=== PATIENT | female | born 1960 | race Caucasian/White ===

== ENCOUNTER 2020-12-16 13:51 | Inpatient (IN) | payer MEDICARE, SELFPAY ==
[2020-12-16 13:57] VITALS: BP 147/105; PULSE 112; RESP 20; O2SAT 93; BMI 23.5
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
[2020-12-16 14:09] VITALS: BP 147/105; PULSE 112; RESP 20; TEMP 36.7; O2SAT 93
--- NOTE | 2020-12-16 14:21 | CTR_ITS ---
PROCEDURE INFORMATION: Exam: CT Head Without Contrast Exam date and time: 12/16/2020 2:21 PM Age: 60 years old Clinical indication: Altered mental status/memory loss; Additional info: AMS TECHNIQUE: Imaging protocol: Computed tomography of the head without contrast. Total images: 201 Radiation optimization: All CT scans at this facility use at least one of these dose optimization techniques: automated exposure control; mA and/or kV adjustment per patient size (includes targeted exams where dose is matched to clinical indication); or iterative reconstruction. COMPARISON: No relevant prior studies available. RADIATION DOSE METRICS: Total DLP (mGy-cm): 1413.8 FINDINGS: Brain: No evidence of active or acute intracranial pathologic process, hemorrhage, or trauma. No visible evidence of diffuse cerebral edema or generalized demyelination. No mass effect. No midline shift. No hyperdense MCA or insular ribbon sign. Cerebral ventricles: No ventriculomegaly. Paranasal sinuses: Within the field of view chronic ethmoid and maxillary sinusitis. Mastoid air cells: Visualized mastoid air cells are well aerated. Bones/joints: Unremarkable. No acute fracture. Soft tissues: Unremarkable. CT/CT head wo con* [id number] IMPRESSION: 1. No evidence of active or acute intracranial pathologic process, hemorrhage, or trauma. 2. Within the field of view chronic ethmoid and maxillary sinusitis. Radiation Dose CTDIVOL = (mGy): DLP = 1413.8 (mGy-cm)
--- NOTE | 2020-12-16 14:22 | ECG_ITS ---
[facility] Test Date: 2020-12-16 Pat Name: Zhane Salguero Department: Room: Gender: Female Compliance Nurse: : 1960 Requested By: Mina Causey Order Number: [id number] Burger MD: Rocael Hall M.D. Measurements Intervals Reading Rate: 67 P: 52 MI: 158 QRS: 28 QRSD: 83 T: 34 QT: 382 QTc: 406 Interpretive Statements SINUS RHYTHM No previous ECG available for comparison Electronically Signed On 12-16-2020 21:05:03 CDT by Rocael Hall M.D. [id number]
[2020-12-16] MEDS: haloperidol inj 5 mg/mL INJ 1 mL 2 MG IM (15:32)
[2020-12-16] MEDS: LORazepam 2 mg/mL INJ 1 mL 1 MG IM (15:33)
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
[2020-12-16 17:06] LABS: Basophils % 0.3 %; Hematocrit 33.5 % (37.0-47.0); Hemoglobin 11.1 g/dL (11.5-15.3); Lymphocytes # 0.3 10^3/uL (0.8-4.8); Mean Corpuscular HGB Conc 33.1 g/dL (30.0-36.0); Mean Corpuscular Hemoglobin 29.4 pg (28.0-34.0); Mean Corpuscular Volume 88.9 fl (81-99); Mean Platelet Volume 9.7 fL (7.4-10.4); Monocytes # 0.3 10^3/uL (0.2-0.9); Monocytes % 2.8 %; Neutrophils # 10.47 10^3/uL (1.8-7.7); Neutrophils % 91.4 %; Nucleated Red Blood Cells % 0 %; Platelet Count 254 10^3/cmm (130-400); Red Blood Count 3.77 10^6/uL (4.1-5.3); Red Cell Distribution Width 15.7 % (12.1-15.1); White Blood Count 11.5 10^3/uL (4.0-10.0)
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
--- NOTE | 2020-12-16 17:23 | PC.NURSE ---
pt to CT by stretcher with tech
[2020-12-16 17:24] LABS: Troponin(5th) Baseline 14 ng/L (0-10)
[2020-12-16 17:25] LABS: Alanine Aminotransferase 26 U/L (0-33); Albumin Level 3.1 g/dL (3.5-5.2); Alkaline Phosphatase 85 IU/L (35-105); Aspartate Amino Transferase 19 U/L (0-32); Blood Urea Nitrogen 32 mg/dL (8-23); Calcium 9.3 mg/dL (8.5-10.5); Carbon Dioxide 25 mmol/L (22-29); Chloride 94 mmol/L (98-107); Globulin 3.2 g/dL (1.3-4.6); Glomerular Filtration Rate 63.7 mL/min (90-130); Glucose 195 mg/dL (65-115); Osmolality Calculated 286 mOsm/kg (285-295); Sodium 132 mmol/L (136-145); Total Bilirubin 0.4 mg/dL (0.15-1.2); Total Protein 6.3 g/dL (6.6-8.7)
[2020-12-16 17:26] LABS: Acetaminophen < 5.0 ug/mL (10-30); Alcohol Level < 10 mg/dL (0-10); Salicylate < 0.3 mg/dL (3-10)
[2020-12-16 17:57] LABS: Urine Color Amber (Yellow)
[2020-12-16 17:58] LABS: Add Urine Microscopic? YES; Amphetamines Screen Urine Negative (Negative); Barbiturates Screen Urine Negative (Negative); Benzodiazepines Screen Urine Negative (Negative); Bilirubin Urine 1+ (Negative); Blood Urine 2+ (Negative); Cocaine Screen Urine Negative (Negative); Glucose Urine UA Norm (Normal); Ketones Urine 1+ (Negative); Leukocyte Esterase Urine 2+ (Negative); Nitrate Urine Negative (Negative); Opiate Screen Urine Negative (Negative); PCP Screen Urine Negative (Negative); Protein Urine Trace (Negative); RBC Urine 0-4 /hpf (0-2); THC Screen Urine Positive (Negative); Urine Appearance Hazy (CLEAR); Urobilinogen Urine 1 mg/dL (Negative); pH Urine 5 (5-7)
[2020-12-16 17:59] LABS: Add Urine Culture? Yes; Bacteria Urine 3+ /hpf; Hyaline Casts Urine 0-4 /lpf; Mucus Urine 2+ /hpf; Transitional Epi Cells Urine 0-4 /hpf
[2020-12-16 19:33] LABS: SARS Covid-2 Antigen Negative (Negative)
[2020-12-16 19:40] LABS: Troponin 5 2HR 11.17 ng/L (0-10)
[2020-12-16 19:42] LABS: Troponin 5 2HR Delta -2.83 ABS# (0-10)
[2020-12-16 20:36] LABS: Procalcitonin 0.23 ng/mL (0-0.5)
--- NOTE | 2020-12-16 21:11 | PC.NURSE ---
Patient refused Medication Patient refused medication order of cephALEXin 500mg. Patient stated that she is allergic to all antibiotics .
[2020-12-16 22:50] VITALS: BP 158/87; PULSE 96; RESP 19; TEMP 37.2; O2SAT 87; BMI 27.6
[2020-12-16 23:31] VITALS: BP 158/87; PULSE 96; RESP 19; TEMP 37.2; O2SAT 87
[2020-12-17 06:00] VITALS: BP 124/80; PULSE 87; RESP 22; TEMP 36.5; O2SAT 90
[2020-12-17] MEDS: guaiFENesin 600 mg Tablet 1200 MG PO (08:56)
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
[2020-12-17 14:00] VITALS: BP 142/84; PULSE 100; RESP 17; TEMP 36.9; O2SAT 95
--- NOTE | 2020-12-17 16:12 | PC.NURSE ---
patient behavior patient sad and tearful in room. she states she has a new plan... she plans to lay under the air conditioner with no blankets until she catches pneumonia and dies. patient states that on one in her family wants her. after a few minutes reports that she thinks she just needs a good cry and will be ok. will continue to monitor.
[2020-12-17 21:07] VITALS: BP 127/80; PULSE 67; RESP 15; TEMP 37.1; O2SAT 89
[2020-12-17] MEDS: ropinirole 1 mg Tablet 0.5 MG PO (22:51)
[2020-12-17] MEDS: cephALEXin 500 mg Capsule PO (22:51)
[2020-12-17] MEDS: trazodone 150 mg Tablet 300 MG PO (22:51)
[2020-12-18 06:00] VITALS: BP 122/78; PULSE 105; RESP 15; TEMP 37.1; O2SAT 94
[2020-12-18] MEDS: cephALEXin 500 mg Capsule PO ×3 (06:51→13:36)
[2020-12-18] MEDS: guaiFENesin 600 mg Tablet 1200 MG PO (08:22)
[2020-12-18] MEDS: predniSONE 10 mg Tablet PO (08:22)
[2020-12-18] MEDS: nicotine 21 mg Patch 1 PATCH TRANSDERMA (09:44)
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
[2020-12-18 14:00] VITALS: BP 128/71; PULSE 120; RESP 20; TEMP 36.2; O2SAT 95
--- NOTE | 2020-12-18 17:38 | PC.NURSE ---
REFUSED SCHEDULED ABILIFY, PT CAME TO DESK SAYING SHE WASN'T TAKING ANY MEDICATIONS WHILE SHE IS STILL HERE NOT EVEN ANY PAIN PILLS STATED SHE WAS GOING TO LIKE [facility] DID IN [address] KERNS NOTIFIED OF MED REFUSAL, NO NEW ORDERS
[2020-12-18 21:23] VITALS: BP 150/98; PULSE 113; RESP 16; TEMP 37.1; O2SAT 95
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
[2020-12-19 06:00] VITALS: RESP 18
--- NOTE | 2020-12-19 06:36 | PC.NURSE ---
clients respirations were observed/will obtain vitals at better time/per client
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
--- NOTE | 2020-12-19 08:31 | PC.NURSE ---
refused scheduled Lance, Sherrell, Mucinex this morning
--- NOTE | 2020-12-19 09:08 | PC.OT ---
OT NPU EVALUATION ATTEMPTED; PATIENT STATES, NO NOT RIGHT NOW, MAYBE AFTER I YOU CAN GET THE INFO. THEY ARE GOING TO LET ME HERE EVALUATION WILL BE ATTEMPTED AGAIN AT A LATER TIME.
[2020-12-19 14:00] VITALS: RESP 16
--- NOTE | 2020-12-19 14:52 | PC.NURSE ---
refused scheduled Keflex
--- NOTE | 2020-12-19 15:05 | PC.RESP ---
sent pulmonary rehab information
--- NOTE | 2020-12-19 15:26 | PC.NURSE ---
REFUSED VITALS, WILL CONTINUE TO MONITOR.
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
[2020-12-19] MEDS: ropinirole 1 mg Tablet 0.5 MG PO (20:46)
[2020-12-19] MEDS: trazodone 150 mg Tablet 300 MG PO (20:47)
[2020-12-19] MEDS: guaiFENesin 600 mg Tablet 1200 MG PO (20:47)
[2020-12-19] MEDS: cephALEXin 500 mg Capsule PO (20:47)
[2020-12-19] MEDS: tizanidine 4 mg Tablet 8 MG PO (20:53)
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
[2020-12-19 22:00] VITALS: RESP 18
--- NOTE | 2020-12-19 22:50 | PC.NURSE ---
pt refused vitals at this time/respirations were observed
--- NOTE | 2020-12-20 01:30 | PC.NURSE ---
Patient slid down from chair to bed very gracefully. She then called staff clamming she fell from chair. It was observed on camera that patient slid down to mat gently. RN assessed patents Tail bone area noting no redness or swelling, with slight tenderness upon palpation.
[2020-12-20] MEDS: LORazepam 2 mg/mL INJ 1 mL IM (02:14)
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
[2020-12-20 06:00] VITALS: PULSE 81; RESP 17; O2SAT 93
[2020-12-20] MEDS: ARIPiprazole 2 mg Tablet PO ×2 (08:40→17:59)
[2020-12-20] MEDS: guaiFENesin 600 mg Tablet 1200 MG PO ×2 (08:40→21:24)
--- NOTE | 2020-12-20 08:45 | PC.NURSE ---
refused scheduled Keflex
[2020-12-20 14:00] VITALS: RESP 18
--- NOTE | 2020-12-20 14:33 | PC.NURSE ---
REFUSED SCHEDULED KEFLEX
--- NOTE | 2020-12-20 17:28 | P.PN_ITS ---
Subjective NPU Subjective: Interval history: I discussed the patient's progress with the treatment team. They say that her , Ridge, is working to get guardianship. I met with the patient in the day area where she was eating dinner. She was picking little slices of care at out of her salad. She has apparently been eating some, despite her covenant with God yesterday that she would not eat until she left here. I spoke some with her about her childhood and family, which she describes as having been very poor. She says that her mood is depressed. She slept some last night. No nightmares. She does not spontaneously complain about any pain. She denies auditory and visual hallu cinations. She denies suicidal ideation. Since the patient was in a more congenial mood this afternoon, I discussed the Abilify again. She said she would be willing to take it, so the nurse brought it, and indeed she did take it. Mental Status Exam MSE Comments: I met with the patient in the day area. She was dressed in hospital scrubs, fairly neatly groomed, and appearing 20 years older than her s tated age. She was calmer today and willingly tells me about a few aspects of her childhood. Eye contact is poor. No psychomotor agitation or retardation. Speech is at a more regular rate and rhythm.. Alert, oriented to person, and situation. Attention and concentration were focused on her salad. Memory is what intact for the purposes of this interview. Mood is irritable but improving. Affect is irritable to pleasant. Thought process shows flight of ideas, but is more organized around delusional content today. Thought content: Denies auditory and visual hallucinations. She has a number of persecutory delusions. She has restorationism preoccupation. Denies current suicidal and homicidal ideation. Insight and judgment appear to be quite limited. Impulse control is limited as well. Vitals/I&O/Wt Last Vital Signs Temp 98.8 F 12/18/20 21:23 Pulse 81 12/20/20 06:00 Resp 17 12/20/20 22:00 BP 150/98 12/18/20 21:23 Pulse Ox 93 12/20/20 06:00 Data NPU : 12/16/20 17:00 12/16/20 17:00 A&P Assessment and plan (1) Acute psychosis: Status: Acute (2) COPD (chronic obstructive pulmonary disease) with emphysema: Status: Acute (3) Osteoporosis: Status: Acute (4) Mild cognitive impairment: Status: Acute (5) Chronic pain: Status: Acute (6) Pancreatic cyst: Status: Acute (7) CVID (common variable immunodeficiency): Status: Acute Additional A&P Information 1. Acute psychosis of unknown origin. Patient has had a medical work-up in the ED. Their note states: - Labs notable for minimal leukocytosis, normocytic anemia with unclear baseline. Metabolic panel without acute derangement to explain patient's symptoms. Urinalysis challenging to interpret in the context of squamous epithelial contamination, given level of agitation and history physical aggression towards staff we are unable to obtain repeat sampling. Given nitrate negative most likely not true infection however given mental status change will plan to discuss with admitting service - Imaging notable for no acute intracranial process to explain behavior change - Upon serial reexamination after treatment the patient was improved with medications - Based on patient history, evaluation, labs, and imaging as interpreted the most likely cause of the patient's condition is psychosis of unclear etiology 2. Consider steroid induced psychosis, since she was taking 60 mg of prednisone a day at some point and 10 mg twice daily at other points. It also may be due to marijuana use and an older person. She may be improved today, which lends credence to the steroid-induced psychosis hypothesis, since she is off of the steroids for a little bit now. 3. Start antipsychotic medication if the patient approves. She took Abilify 2 mg voluntarily this afternoon. 4. Continue every 15 minute checks for safety. 5. Encourage individual, group and milieu therapies. 6. Create a stable and safe discharge plan 7. We will need to request a 21-day hold since the patient's psychosis does not appear to be resolving without psychiatric medication, and she continues to refuse medication Involuntary Hold Information 96 Hour Hold: 96 Hour Involuntary Admission: No Attestations NPU Medical Necessity Statement*: Psychiatric hospitalization is medically necessary to continue assessment for cause of psychosis, prevent access to lethal means, to initiate medication, and to coordinate a safe discharge. Likely length of stay is 10-14 days. Coding Level of Care Code Acute Parliamentary Librarian for Silver Lynn Diagnoses Acute psychosis F23 COPD (chronic obstructive pulmonary disease) with emphysema J43.9 Osteoporosis M81.0 Mild cognitive impairment G31.84 Chronic pain G89.29 Pancreatic cyst K86.2 CVID (common variable immunodeficiency) D83.9
[2020-12-20] MEDS: haloperidol 5 mg Tablet PO (21:24)
[2020-12-20] MEDS: cephALEXin 500 mg Capsule PO (21:24)
[2020-12-20] MEDS: ropinirole 1 mg Tablet 0.5 MG PO (21:25)
[2020-12-20] MEDS: trazodone 150 mg Tablet 300 MG PO (21:27)
[2020-12-20 22:00] VITALS: RESP 17
--- NOTE | 2020-12-21 03:50 | PC.NURSE ---
Addendum entered by Mirella Law RN 12/21/20 03:58: RN emailed GERARD Little regarding daughters concern Original Note: Daughter/Guardianship Daughter, Mechelle Salguero, called this evening seeking information on taking guardianship of her mother. Her phone number is [phone] (night) and . Daughter is worried that this patient wanders off, reports recent Silver alert prior to admission. Pt reports, mother uses marijuana and has a card for this. Pt states her mother is on high dose of predisone 20mg po for hypergamaglobulin anemia and she is worried that her mother may suffer if she does not take her medications. Physician who prescribes meds is Dr. Gottlieb, pcp in [place], [place]. Pt also takes Tizanidine and Trazodone but daughter was unsure of dose. She said she would call in the morning with more information. Mechelle would like to know if the hospital could assist her in taking guardianship.
[2020-12-21 06:00] VITALS: BP 122/72; PULSE 121; RESP 15; TEMP 36.3; O2SAT 94
--- NOTE | 2020-12-21 07:00 | PC.NURSE ---
Patient came to nurses station stating she was having leg cramps. I offered her zanaflex and tylenol. She refused both.
--- NOTE | 2020-12-21 07:21 | PC.NURSE ---
pt stated it is her legal labor right to be given a ride to the courthouse at 1400 on 12/21/2020
[2020-12-21] MEDS: guaiFENesin 600 mg Tablet 1200 MG PO ×2 (08:52→22:29)
[2020-12-21] MEDS: ARIPiprazole 2 mg Tablet PO (08:52)
[2020-12-21] MEDS: cephALEXin 500 mg Capsule PO (08:52)
--- NOTE | 2020-12-21 11:56 | PC.NUTR ---
Nutrition assessment completed for LOS. Noted 8 meals of 0%. Questionable weights in EMR. Interviewed pt for meal preferences, but received questionable information. States she wants ice cream and sherbet but then stated she chokes on them. Unclear accuracy--may benefit from BOOTMAKER HAND evaluation. Attempted to clarify current weight with staff, but reported they are unsure which weight in EMR may be accurate. Staff recommended not to attempt to weigh pt at this time given her mental status. Will add whole milk and vanilla pudding per pt preference. See full RD assessment for further details.
--- NOTE | 2020-12-21 13:58 | PC.NURSE ---
PT OFF UNIT TO COURT.
[2020-12-21 14:00] VITALS: TEMP 36.7
--- NOTE | 2020-12-21 19:04 | P.PN_ITS ---
Subjective NPU Subjective: Interval history: I discussed the patient's progress with the treatment team. They say that her , Ridge, is working to get guardianship. I met with the patient on the bench by the nurses station. I explained how the 21-day hearing will go, and what I will say. She could understand that we may agree to disagree. The nutrition report says that she has not really been eating. She is actually living up to her covenant with God to not eat until she left here. She says that her mood is depressed. She slept okay last night. No nightmares. She does not spontaneously complain about any pain. She denies auditory and visual hallucinations. She denies suicidal ideation. I saw the patient after the hearing which ordered her to stay in the hospital up to an additional 21 days. She seemed okay with the outcome. Mental Status Exam MSE Comments: I met with the patient in the day area. She was dressed in hospital scrub bottoms and a flowered top, fairly neatly groomed, and appearing 20 years older than her stated age. Eye contact is poor. No psychomotor agitation or retardation. Speech is at a regular rate and rhythm. Alert, oriented to person, and situation. Attention and concentration were distractible. Memory is what intact for the purposes of this interview. Mood is irritable but improving. Affect is irritable to pleasant. Thought process shows flight of ideas, but is more organized around delusional content today. Thought content: Denies auditory and visual hallucinations. She has a number of persecutory delusions. She has islam preoccupation. Denies current suicidal and homicidal ideation. Insight and judgment appear to be quite limited. Impulse control is limited as well. Vitals/I&O/Wt Last Vital Signs Temp 98.4 F 12/22/20 06:00 Pulse 97 12/22/20 06:00 Resp 20 H 12/22/20 06:00 BP 101/65 12/22/20 06:00 Pulse Ox 93 12/22/20 06:00 Data NPU : 12/16/20 17:00 12/16/20 17:00 A&P Assessment and plan (1) Acute psychosis: Possibly related to steroid use Status: Acute (2) COPD (chronic obstructive pulmonary disease) with emphysema: Status: Acute (3) Osteoporosis: Status: Acute (4) Mild cognitive impairment: Status: Acute (5) Chronic pain: Status: Acute (6) Pancreatic cyst: Status: Acute (7) CVID (common variable immunodeficiency): Status: Acute Additional A&P Information 1. Acute psychosis of unknown origin. Patient has had a medical work-up in the ED. Their note states: - Labs notable for minimal leukocytosis, normocytic anemia with unclear baseline. Metabolic panel without acute derangement to explain patient's symptoms. Urinalysis challenging to interpret in the context of squamous epithelial contamination, given level of agitation and history physical aggression towards staff we are unable to obtain repeat sampling. Given nitrate negative most likely not true infection however given mental status change will plan to discuss with admitting service - Imaging notable for no acute intracranial process to explain behavior change - Upon serial reexamination after treatment the patient was improved with medications - Based on patient history, evaluation, labs, and imaging as interpreted the most likely cause of the patient's condition is psychosis of unclear etiology 2. Consider steroid induced psychosis, since she was taking 60 mg of prednisone a day at some point and 10 mg twice daily at other points. It also may be due to marijuana use and an older person. She may be improved today, which lends credence to the steroid-induced psychosis hypothesis, since she is off of the steroids for a little bit now. 3. Start antipsychotic medication if the patient approves. She took Abilify 2 mg voluntarily this afternoon. 4. Continue every 15 minute checks for safety. 5. Encourage individual, group and milieu therapies. 6. Create a stable and safe discharge plan 7. 21-day hold was granted. Involuntary Hold Information 96 Hour Hold: 96 Hour Involuntary Admission: No Attestations NPU Medical Necessity Statement*: Psychiatric hospitalization is medically necessary to continue assessment for cause of psychosis, prevent access to lethal means, to initiate medication, and to coordinate a safe discharge. Likely length of stay is 9-13 days. Coding Level of Care Code Acute Checking Department Supervisor for Silver Lynn Diagnoses Acute psychosis F23 COPD (chronic obstructive pulmonary disease) with emphysema J43.9 Osteoporosis M81.0 Mild cognitive impairment G31.84 Chronic pain G89.29 Pancreatic cyst K86.2 CVID (common variable immunodeficiency) D83.9
[2020-12-21 20:26] VITALS: RESP 18
--- NOTE | 2020-12-21 21:30 | PC.NURSE ---
Patients Keflex was refused by patient. Stated she can only take IV ABX. To spite multiple attempts and convince her that she is not allergic to this ABX.
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
--- NOTE | 2020-12-21 21:45 | PC.NURSE ---
Keflex was wasted due to being opened.
[2020-12-21] MEDS: ropinirole 1 mg Tablet 0.5 MG PO (22:29)
[2020-12-21] MEDS: trazodone 150 mg Tablet 300 MG PO (22:30)
[2020-12-21] MEDS: hyDROXYzine 25 mg Capsule 50 MG PO (22:31)
[2020-12-21] MEDS: acetaminophen 325 mg Tablet 650 MG PO (22:32)
[2020-12-21] MEDS: tizanidine 4 mg Tablet 8 MG PO (22:32)
--- NOTE | 2020-12-22 03:04 | PC.NURSE ---
Nurses Note: Behavioral assessment: Pt in halls and at Nursing station at start of shift. Very animated at medication pass. Refused keflex po stating, I can only take IV antibiotics, I am allergic to the pills. Denies SI and HI this shift. Pt c/o pain in back; medication given as ordered. Pt alert to person, place and situation, moves all extremities and follows commands. Currently resting with eyes closed. All vs and assessments as charted.
--- NOTE | 2020-12-22 03:06 | PC.NURSE ---
Patient refused states she can only do IV ABX.
--- NOTE | 2020-12-22 03:08 | PC.NURSE ---
Patient requested Anxiety and antispasmodic medication.Vistaril 50mg PO and Zanaflex 8mg PO given with good success.
[2020-12-22 06:00] VITALS: BP 101/65; PULSE 97; RESP 20; TEMP 36.9; O2SAT 93
[2020-12-22] MEDS: guaiFENesin 600 mg Tablet 1200 MG PO ×2 (08:23→21:19)
[2020-12-22] MEDS: ARIPiprazole 2 mg Tablet PO (08:23)
[2020-12-22] MEDS: tizanidine 4 mg Tablet 8 MG PO (09:46)
[2020-12-22 14:00] VITALS: BP 95/65; PULSE 95; RESP 17; TEMP 36.8; O2SAT 99
--- NOTE | 2020-12-22 16:21 | PM.NPN ---
Subjective NPU Subjective: Interval history: Patient presents today with no significant goal-directed thinking she has any odd questions about musical groups that she thought I might have known. Otherwise she had different comments and ideas that were of limited goal-directed behavior but was still taking her medication. Mental Status Exam MSE Comments: This is a underweight white female looking significantly older than her stated age with significant skin wrinkling with hospital scrubs on with adequate grooming and eye contact. No abnormal movements except for psychomotor retardation. Some mild ataxia with gait using a rolling walker. Cooperative exam in no acute distress. Speech was limited in normal rate decreased volume. Mood described as okay affect odd. Thought process somewhat organized. Thought content: Patient denied suicidal or homicidal ideation, there were no delusions reported but some odd thinking noted, she did not appear to be attending to internal stimuli. Attention and concentration was limited and memory was somewhat reliable but none were formally tested. She is alert and oriented x3. Insight and judgment are limited impulse control is fair. Vitals/I&O/Wt Last Vital Signs Temp 98.1 F 12/22/20 20:31 Pulse 106 H 12/22/20 20:31 Resp 18 12/22/20 20:31 BP 108/76 12/22/20 20:31 Pulse Ox 98 12/22/20 20:31 Data NPU : 12/16/20 17:00 12/16/20 17:00 A&P Additional A&P Information (1) Acute psychosis: Possibly related to steroid use (2) COPD (chronic obstructive pulmonary disease) with emphysema: (3) Osteoporosis: (4) Mild cognitive impairment: (5) Chronic pain: (6) Pancreatic cyst: (7) CVID (common variable immunodeficiency): 1. Acute psychosis of unknown origin. Patient has had a medical work-up in the ED. Their note states: - Labs notable for minimal leukocytosis, normocytic anemia with unclear baseline. Metabolic panel without acute derangement to explain patient's symptoms. Urinalysis challenging to interpret in the context of squamous epithelial contamination, given level of agitation and history physical aggression towards staff we are unable to obtain repeat sampling. Given nitrate negative most likely not true infection however given mental status change will plan to discuss with admitting service - Imaging notable for no acute intracranial process to explain behavior change - Upon serial reexamination after treatment the patient was improved with medications - Based on patient history, evaluation, labs, and imaging as interpreted the most likely cause of the patient's condition is psychosis of unclear etiology 2. Consider steroid induced psychosis, since she was taking 60 mg of prednisone a day at some point and 10 mg twice daily at other points. It also may be due to marijuana use and an older person. She may be improved today, which lends credence to the steroid-induced psychosis hypothesis, since she is off of the steroids for a little bit now. 3. continue current medication. 4. Continue every 15 minute checks for safety. 5. Encourage individual, group and milieu therapies. 6. Create a stable and safe discharge plan 7. 21-day hold was granted. Involuntary Hold Information 96 Hour Hold: 96 Hour Involuntary Admission: No Attestations NPU Medical Necessity Statement*: Psychiatric hospitalization is medically necessary to continue assessment for cause of psychosis, prevent access to lethal means, to initiate medication, and to coordinate a safe discharge. Likely length of stay is 8-12 days. Coding Level of Care Code Acute Skein Yard Drier for Silver Lynn
[2020-12-22 20:31] VITALS: BP 108/76; PULSE 106; RESP 18; TEMP 36.7; O2SAT 98
[2020-12-22] MEDS: trazodone 150 mg Tablet 300 MG PO (21:19)
[2020-12-22] MEDS: ropinirole 1 mg Tablet 0.5 MG PO (21:19)
--- NOTE | 2020-12-22 22:11 | PC.NURSE ---
patient refused to take her Cephalexin
--- NOTE | 2020-12-22 22:39 | PC.NURSE ---
During shift assessment and as well with medication administration patient was specifically asked, as with all patient's, regarding current pain level. Patient denies pain and has not asked this RN for anything in regards to pain. Medications were administered as ordered. Patient refuses all PO antibiotics.
[2020-12-23 06:00] VITALS: BP 96/62; PULSE 104; RESP 17; TEMP 36.6; O2SAT 94
[2020-12-23] MEDS: tizanidine 4 mg Tablet 8 MG PO (09:23)
[2020-12-23] MEDS: acetaminophen 325 mg Tablet 650 MG PO (09:24)
[2020-12-23] MEDS: guaiFENesin 600 mg Tablet 1200 MG PO ×2 (09:24→20:33)
[2020-12-23] MEDS: ARIPiprazole 2 mg Tablet PO (09:25)
--- NOTE | 2020-12-23 11:10 | NPU.GN ---
[facility] Topic:Coping skills alessandra General Mood of Group: Patient come to group on time, dressed appropriately, with good hygiene. Patient did participate in group. Group was help outside. Questions where asked. The mood of the group seemed to have high anxiety and some group members did have to excuse themselves.
--- NOTE | 2020-12-23 12:39 | DCPLANNER ---
IMM completed on 12/23/20 and copy given to pt.
--- NOTE | 2020-12-23 13:10 | P.PN_ITS ---
Subjective NPU Subjective: Interval history: Patient presents today with her major focus on her pain. Outside of that she had limited focus on any goal-directed conversation. She was somewhat obstinate and was identifying significant pain medication she had in the past and demanding that we consider giving those. We discussed the possibility of a one-time pain medication this evening and then possible consult in the morning. Mental Status Exam MSE Comments: This is a underweight white female looking significantly older than her stated age with significant skin wrinkling with hospital scrubs on with adequate grooming and eye contact. No abnormal movements except for psychomotor retardation. Some mild ataxia with gait using a rolling walker. Cooperative exam in no acute distress. Speech was limited in normal rate decreased volume. Mood described as upset that no one is paying attention to my pain, affect odd. Thought process somewhat organized. Thought content: Patient denied suicidal or homicidal ideation, there were no delusions reported but some odd thinking noted, she did not appear to be attending to internal stimuli. Attention and concentration was limited and memory was somewhat reliable but none were formally tested. She is alert and oriented x3. Insight and judgment are limited impulse control is fair. Vitals/I&O/Wt Last Vital Signs Temp 97.9 F 12/23/20 06:00 Pulse 104 H 12/23/20 06:00 Resp 17 12/23/20 06:00 BP 96/62 12/23/20 06:00 Pulse Ox 94 12/23/20 06:00 Data NPU : 12/16/20 17:00 12/16/20 17:00 A&P Additional A&P Information (1) Acute psychosis: Possibly related to steroid use (2) COPD (chronic obstructive pulmonary disease) with emphysema: (3) Osteoporosis: (4) Mild cognitive impairment: (5) Chronic pain: (6) Pancreatic cyst: (7) CVID (common variable immunodeficiency): 1. Acute psychosis of unknown origin. Patient has had a medical work-up in the ED. Their note states: - Labs notable for minimal leukocytosis, normocytic anemia with unclear baseline. Metabolic panel without acute derangement to explain patient's symptoms. Urinalysis challenging to interpret in the context of squamous epithelial contamination, given level of agitation and history physical a ggression towards staff we are unable to obtain repeat sampling. Given nitrate negative most likely not true infection however given mental status change will plan to discuss with admitting service - Imaging notable for no acute intracranial process to explain behavior change - Upon serial reexamination after treatment the patient was improved with medications - Based on patient history, evaluation, labs, and imaging as interpreted the most likely cause of the patient's condition is psychosis of unclear etiology 2. Consider steroid induced psychosis, since she was taking 60 mg of prednisone a day at some point and 10 mg twice daily at other points. It also may be due to marijuana use and an older person. She may be improved today, which lends credence to the steroid-induced psychosis hypothesis, since she is off of the steroids for a little bit now. 3. continue current medication. 4. Continue every 15 minute checks for safety. 5. Encourage individual, group and milieu therapies. 6. Create a stable and safe discharge plan 7. 21-day hold was granted. 8. We will give some as needed medication for pain and consider the medical consult tomorrow. Involuntary Hold Information 96 Hour Hold: 96 Hour Involuntary Admission: No Attestations NPU Medical Necessity Statement*: Psychiatric hospitalization is medically necessary to continue assessment for cause of psychosis, prevent access to l ethal means, to initiate medication, and to coordinate a safe discharge. Likely length of stay is 7-11 days. Coding Level of Care Code Acute Rubber Tester for Silver Lynn
[2020-12-23 14:00] VITALS: BP 93/53; PULSE 78; RESP 16; TEMP 36.3; O2SAT 96
--- NOTE | 2020-12-23 15:36 | PC.NURSE ---
PATIENT SCOOTING DOWN [place] ON BACK. NURSE INSTRUCTED PATIENT TO GET OFF FLOOR FOR SAFETY AND PATIENT STATED SHE WAS NOT UNTIL THE DR SPOKE WITH HER. DR RAPHAEL NOTIFIED AND NURSE NOTIFIED PATIENT THAT IT WOULD STILL BE A BIT AND IT WOULD BE BEST TO GET OFF THE FLOOR FOR HER SAFETY AND PATIENT REFUSED.
--- NOTE | 2020-12-23 18:17 | PC.NURSE ---
NURSE BROUGHT PATIENT MILK AND ICE CREAM. PATIENT STATED SHE DID NOT WANT ANYTHING TO EAT AND THAT SHE WILL JUST CONTINUE TO STARVE BECAUSE IT WILL LOOK BETTER IN COURT NURSE REASSURED PATIENT THAT SHE WOULD TRY TO GET HER SOMETHING SHE WOULD EAT AND PATIENT CONTINUED TO REFUSE.
[2020-12-23] MEDS: cephALEXin 500 mg Capsule PO (20:33)
[2020-12-23] MEDS: ropinirole 1 mg Tablet 0.5 MG PO (20:33)
[2020-12-23 20:58] VITALS: BP 101/59; PULSE 102; RESP 20; TEMP 37.1; O2SAT 94
[2020-12-23] MEDS: trazodone 150 mg Tablet 300 MG PO (22:30)
[2020-12-23] MEDS: TRAMadol 50 mg Tablet 100 MG PO (22:50)
[2020-12-24 06:00] VITALS: BP 99/68; PULSE 76; RESP 20; TEMP 36.7; O2SAT 94
--- NOTE | 2020-12-24 08:15 | PM.NPN ---
Subjective NPU Subjective: Interval history: Patient does today having some improvement and clearly and intermixing thankfulness and support of the treatment team and frustration and plans to chad. Unlike yesterday though her agreeableness and willingness to work with the treatment team is more prominent. Her cognitive clearly continues to show slow improvement. She continues to visit with her daughter and have complaints about pain. Mental Status Exam MSE Comments: This is a underweight white female looking significantly older than her stated age with significant skin wrinkling with hospital scrubs on with adequate grooming and eye contact. No abnormal movements except for psychomotor retardation. Some mild ataxia with gait using a rolling walker. Cooperative exam in no acute distress. Speech was more normal rate decreased volume. Mood described as okay, affect less odd. Thought process somewhat organized. Thought content: Patient denied suicidal or homicidal ideation, there were no delusions reported but some odd thinking noted, she did not appear to be attending to internal stimuli. Attention and concentration was limited and memory was somewhat reliable but none were formally tested. She is alert and oriented x3. Insight and judgment are limited impulse control is fair. Vitals/I&O/Wt Last Vital Signs Temp 98.0 F 12/24/20 06:00 Pulse 76 12/24/20 06:00 Resp 20 H 12/24/20 06:00 BP 99/68 12/24/20 06:00 Pulse Ox 94 12/24/20 06:00 Data NPU : 12/16/20 17:00 12/16/20 17:00 A&P Additional A&P Information (1) Acute psychosis: Possibly related to steroid use (2) COPD (chronic obstructive pulmonary disease) with emphysema: (3) Osteoporosis: (4) Mild cognitive impairment: (5) Chronic pain: (6) Pancreatic cyst: (7) CVID (common variable immunodeficiency): 1. Acute psychosis of unknown origin. Patient has had a medical work-up in the ED. Their note states: - Labs notable for minimal leukocytosis, normocytic anemia with unclear baseline. Metabolic panel without acute derangement to explain patient's symptoms. Urinalysis challenging to interpret in the context of squamous epithelial contamination, given level of agitation and history physical aggression towards staff we are unable to obtain repeat sampling. Given nitrate negative most likely not true infection however given mental status change will plan to discuss with admitting service - Imaging notable for no acute intracranial process to explain behavior change - Upon serial reexamination after treatment the patient was improved with medications - Based on patient history, evaluation, labs, and imaging as interpreted the most likely cause of the patient's condition is psychosis of unclear etiology 2. Consider steroid induced psychosis, since she was taking 60 mg of prednisone a day at some point and 10 mg twice daily at other points. It also may be due to marijuana use and an older person. She may be improved today, which lends credence to the steroid-induced psychosis hypothesis, since she is off of the steroids for a little bit now. 3. continue current medication. 4. Continue every 15 minute checks for safety. 5. Encourage individual, group and milieu therapies. 6. Create a stable and safe discharge plan 7. 21-day hold was granted. 8. We will give some as needed medication for pain and consider the medical consult tomorrow. Involuntary Hold Information 96 Hour Hold: 96 Hour Involuntary Admission: No Attestations NPU Medical Necessity Statement*: Psychiatric hospitalization is medically necessary to continue assessment for cause of psychosis, prevent access to lethal means, to initiate medication, and to coordinate a safe discharge. Likely length of stay is 5-10 days. 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
[2020-12-24] MEDS: guaiFENesin 600 mg Tablet 1200 MG PO ×2 (09:04→20:33)
[2020-12-24] MEDS: ARIPiprazole 2 mg Tablet PO (09:04)
[2020-12-24 14:00] VITALS: BP 111/74; PULSE 108; RESP 18; TEMP 37.3; O2SAT 95
[2020-12-24] MEDS: blistex lip oint 7 gm Tube 1 APPLIC TOPICAL (15:27)
[2020-12-24] MEDS: trazodone 150 mg Tablet 300 MG PO (20:34)
[2020-12-24] MEDS: ropinirole 1 mg Tablet 0.5 MG PO (20:34)
[2020-12-24 20:46] VITALS: BP 117/75; PULSE 112; RESP 17; TEMP 36.6; O2SAT 97
[2020-12-24] MEDS: ondansetron 4 MG Tablet PO (23:40)
[2020-12-25] MEDS: blistex lip oint 7 gm Tube 1 APPLIC TOPICAL ×3 (02:17→10:30)
--- NOTE | 2020-12-25 02:46 | PC.NURSE ---
PRN tylenol and zofran given for pain and nausea. No emesis noted. Patient responded well to medication. Will continue to monitor.
[2020-12-25 06:00] VITALS: BP 107/69; PULSE 117; RESP 18; TEMP 36.6; O2SAT 99
--- NOTE | 2020-12-25 07:24 | P.PN_ITS ---
Subjective NPU Subjective: Interval history: Patient presents today stating continuing to appear much more limited compared to the initial reports. She seems to be optimistic about the prospects of what comes next. She denied any significant problems or issues with the medications. There were no significant concerns reported by staff. Mental Status Exam MSE Comments: This is a underweight white female looking significantly older than her stated age with significant skin wrinkling with hospital scrubs on with adequate grooming and eye contact. No abnormal movements except for psychomotor retardation. Some mild ataxia with gait using a wheelchair. Cooperative exam in no acute distress. Speech was more normal rate and volume. Mood described as okay, affect less odd. Thought process somewhat organized. Thought content: Patient denied suicidal or homicidal ideation, there were no delusions reported but some odd thinking noted, she did not appear to be attending to internal stimuli. Attention and concentration was limited and memory was somewhat reliable but none were formally tested. She is alert and oriented x3. Insight and judgment are limited impulse control is fair. Vitals/I&O/Wt Last Vital Signs Temp 97.9 F 12/25/20 06:00 Pulse 117 H 12/25/20 06:00 Resp 18 12/25/20 06:00 BP 107/69 12/25/20 06:00 Pulse Ox 99 12/25/20 06:00 Weight last 48 hrs Weight 48.534 kg Data NPU : 12/16/20 17:00 12/16/20 17:00 A&P Additional A&P Information (1) Acute psychosis: Possibly related to steroid use (2) COPD (chronic obstructive pulmonary disease) with emphysema: (3) Osteoporosis: (4) Mild cognitive impairment: (5) Chronic pain: (6) Pancreatic cyst: (7) CVID (common variable immunodeficiency): 1. Acute psychosis of unknown origin. Patient has had a medical work-up in the ED. Their note states: - Labs notable for minimal leukocytosis, normocytic anemia with unclear baseline. Metabolic panel without acute derangement to explain patient's symptoms. Urinalysis challenging to interpret in the context of squamous epith elial contamination, given level of agitation and history physical aggression towards staff we are unable to obtain repeat sampling. Given nitrate negative most likely not true infection however given mental status change will plan to discuss with admitting service - Imaging notable for no acute intracranial process to explain behavior change - Upon serial reexamination after treatment the patient was improved with medications - Based on patient history, evaluation, labs, and imaging as interpreted the most likely cause of the patient's condition is psychosis of unclear etiology 2. Consider steroid induced psychosis, since she was taking 60 mg of prednisone a day at some point and 10 mg twice daily at other points. It also may be due to marijuana use and an older person. She may be improved today, which lends credence to the steroid-induced psychosis hypothesis, since she is off of the steroids for a little bit now. 3. continue current medication. 4. Continue every 15 minute checks for safety. 5. Encourage individual, group and milieu therapies. 6. Create a stable and safe discharge plan 7. 21-day hold was granted. 8. We will give some as needed medication for pain and consider the medical consult tomorrow. Involuntary Hold Information 96 Hour Hold: 96 Hour Involuntary Admission: No Attestations NPU Medical Necessity Statement*: Psychiatric hospitalization is medically necessa ry to continue assessment for cause of psychosis, prevent access to lethal means, to initiate medication, and to coordinate a safe discharge. Likely length of stay is 3-8 days. 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
[2020-12-25] MEDS: guaiFENesin 600 mg Tablet 1200 MG PO ×2 (10:29→22:00)
--- NOTE | 2020-12-25 10:34 | PC.NURSE ---
Pt refused Cephalexin. Refused Abilify because I'm not crazy. Educated pt regarding both medications and the importance of taking them. Pt adamantly refused. Denies pain or other needs. Offered pt lotion. Pt states, You're freaking me out by offering me lotion. However, pt took lotion and applied it to dry skin.
[2020-12-25 14:00] VITALS: BP 123/85; PULSE 121; RESP 19; TEMP 36.8; O2SAT 93
[2020-12-25 20:13] VITALS: BP 125/84; PULSE 114; RESP 23; TEMP 36.8; O2SAT 94
--- NOTE | 2020-12-25 21:00 | PC.NURSE ---
PRN Tizanidine 8mg PO given for muscle spasms.
--- NOTE | 2020-12-25 21:00 | PC.NURSE ---
Pt refused Cephalexin this evening.
[2020-12-25] MEDS: trazodone 150 mg Tablet 300 MG PO (22:00)
[2020-12-25] MEDS: tizanidine 4 mg Tablet 8 MG PO (22:00)
[2020-12-25] MEDS: ropinirole 1 mg Tablet 0.5 MG PO (22:09)
--- NOTE | 2020-12-25 23:11 | PC.NURSE ---
PM assessment pt is smiling in her bed, asked for whole milk and zac crackers. 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 She has connected with a young boy who is grieving and she says, I am letting God work it out with him. Pt is interacting with staff more and with other patients.
--- NOTE | 2020-12-25 23:34 | PC.NURSE ---
Red skin Reddened skin area on the patients buttocks near tailbone, pt reports chronic pain if not on a pillow, pillow is ordered, medication for prevention of skin breakdown ordered. There are no open areas yet in that area but if left untreated will continue to breakdown. Padding the bony areas that are in contact with the wheelchair should help to prevent this.
--- NOTE | 2020-12-25 23:41 | PC.NURSE ---
pt requested her spasm medication. zanzflex given.
--- NOTE | 2020-12-26 01:50 | PC.NURSE ---
pt has been resting quietly after hs meds given at 2200 last [address].
[2020-12-26 06:00] VITALS: BP 99/61; PULSE 108; RESP 21; TEMP 37.2; O2SAT 95
[2020-12-26] MEDS: guaiFENesin 600 mg Tablet 1200 MG PO ×2 (08:57→21:32)
[2020-12-26] MEDS: ARIPiprazole 2 mg Tablet PO (08:57)
[2020-12-26 13:53] VITALS: BP 123/78; PULSE 109; RESP 19; TEMP 37.3; O2SAT 95
--- NOTE | 2020-12-26 13:57 | PC.NURSE ---
refused scheduled keflex
--- NOTE | 2020-12-26 14:05 | NPU.GN ---
[facility] Topic:Depression BINGO General Mood of Group: General mood was talkative. Seemed like most everyone in the group was talkative. This group was exceptionable large. They seemed to all want to speak at the same time. This patient came to group on time and dressed appropriate with good hygiene. This patient did participate and did ask questions. She did leave group a ittle early as the nurse needed to speak with her.
--- NOTE | 2020-12-26 16:14 | P.PN_ITS ---
Subjective NPU Subjective: Interval history: Zhane presents today continuing to gain clarity in her speech and cognition. She was given her GelPad by her kids which she reports has created greater comfort as she is in the wheelchair. We discussed the risk benefits and alternatives of getting a PT OT evaluation and recommendation to make sure we understand where she is functioning given reports from family that she was functioning better prior to admission. She reports she is eating and sleeping well. Mental Status Exam MSE Comments: This is a underweight white female looking significantly older than her stated age with significant skin wrinkling with hospital scrubs on with adequate grooming and eye contact. No abnormal movements except for mild psychomotor retardation. Some mild ataxia with gait, using a wheelchair. Cooperative exam in no acute distress. Speech was more normal rate and volume. Mood described as okay, affect congruent. Thought process more organized. Thought content: Patient denied suicidal or homicidal ideation, there were no delusions reported or noted, she denied auditory or visual hallucinations. Attention and concentration was limited and memory was reliable but none were formally tested. She is alert and oriented x3. Insight and judgment are impr oving impulse control is fair. Vitals/I&O/Wt Last Vital Signs Temp 99.1 F 12/26/20 13:53 Pulse 109 H 12/26/20 13:53 Resp 19 H 12/26/20 13:53 BP 123/78 12/26/20 13:53 Pulse Ox 95 12/26/20 13:53 Weight last 48 hrs Weight 48.534 kg Data NPU : 12/16/20 17:00 12/16/20 17:00 A&P Additional A&P Information (1) Acute psychosis: Possibly related to steroid use (2) COPD (chronic obstructive pulmonary disease) with emphysema: (3) Osteoporosis: (4) Mild cognitive impairment: (5) Chronic pain: (6) Pancreatic cyst: (7) CVID (common variable immunodeficiency): 1. Acute psychosis of unknown origin. Patient has had a medical work-up in the ED. Their note states: - Labs notable for minimal leukocytosis, normocytic anemia with unclear baseline. Metabolic panel without acute derangement to explain patient's symptoms. Urinalysis challenging to interpret in the context of squamous epithelial contamination, given level of agitation and history physical aggression towards staff we are unable to obtain repeat sampling. Given nitrate negative most likely not true infection however given mental status change will plan to discuss with admitting service - Imaging notable for no acute intracranial process to explain behavior change - Upon serial reexamination after treatment the patient was improved with medications - Based on patient history, evaluation, labs, and imaging as interpreted the most likely cause of the patient's condition is psychosis of unclear etiology 2. Consider steroid induced psychosis, since she was taking 60 mg of prednisone a day at some point and 10 mg twice daily at other points. It also may be due to marijuana use and an older person. She may be improved today, which lends credence to the steroid-induced psychosis hypothesis, since she is off of the steroids for a little bit now. 3. continue current medication. 4. Continue every 15 minute checks for safety. 5. Encourage individual, group and milieu therapies. 6. Create a stable and safe discharge plan 7. 21-day hold was granted. Involuntary Hold Information 96 Hour Hold: 96 Hour Involuntary Admission: No Attestations NPU Medical Necessity Statement*: Psychiatric hospitalization is medically necessary to continue assessment for cause of psychosis, prevent access to lethal means, to initiate medication, and to coordinate a safe discharge. Likely length of stay is 2-6 days. 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
[2020-12-26] MEDS: ropinirole 1 mg Tablet 0.5 MG PO (21:33)
[2020-12-26] MEDS: trazodone 150 mg Tablet 300 MG PO (21:39)
[2020-12-26] MEDS: tizanidine 4 mg Tablet 8 MG PO (21:40)
--- NOTE | 2020-12-26 21:40 | PC.NURSE ---
pt given zanaflex per request for muscle spasms
[2020-12-26 22:00] VITALS: BP 141/89; PULSE 115; RESP 22; TEMP 36.8; O2SAT 99
--- NOTE | 2020-12-26 22:10 | PC.NURSE ---
pt resting in room quietly with both eyes closed
[2020-12-27 06:00] VITALS: BP 94/64; PULSE 110; RESP 18; TEMP 37.2; O2SAT 93
[2020-12-27] MEDS: ARIPiprazole 2 mg Tablet PO (08:52)
[2020-12-27] MEDS: guaiFENesin 600 mg Tablet 1200 MG PO ×2 (08:52→21:35)
--- NOTE | 2020-12-27 10:36 | NPU.GN ---
[facility] Topic:Sail Boat / Mechanisms General Mood of Group: Zhane attended group today. She was talkative and in good spirits.
[2020-12-27 14:00] VITALS: BP 109/70; PULSE 112; RESP 18; TEMP 37.2; O2SAT 92
--- NOTE | 2020-12-27 17:34 | P.PN_ITS ---
Subjective NPU Subjective: Interval history: Patient presents today endorsing that he is frustrated about the whole limitations to getting to a half-way. We continued talking to the family about the fact that she may not be able to qualify for out-of-home services. Spoke to her who was not against her coming home but had concerns about some of the threats that she had made. We di scussed with him coming in and having a visit prior to discharge given the complex and having a sort of mediation meeting. Tomorrow. She was initially resistant to him coming to see her but then acquiesced to the fact that if she is going to live with him she should be able to meet with him. Mental Status Exam MSE Comments: This is a underweight white female looking significantly older than her stated age with significant skin wrinkling with hospital scrubs on with adequate grooming and eye contact. No abnormal movements except for mild psychomotor retardation. Some mild ataxia with gait, using a wheelchair. Cooperative exam in no acute distress. Speech was more normal rate and volume. Mood described as fine, affect congruent. Thought process more organized. Thought content: Patient denied suicidal or homicidal ideation, there were no delusions reported or noted, she denied auditory or visual hallucinations. Attention and concentration was limited and memory was reliable but none were formally tested. She is alert and oriented x3. Insight and judgment are improving impulse control is fair. Vitals/I&O/Wt Last Vital Signs Temp 99.0 F 12/27/20 22:00 Pulse 104 H 12/27/20 22:00 Resp 15 12/27/20 22:00 BP 104/68 12/27/20 22:00 Pulse Ox 94 12/27/20 22:00 Data NPU : 12/16/20 17:00 12/16/20 17:00 A&P Additional A&P Information (1) Acute psychosis: Possibly related to steroid use (2) COPD (chronic obstructive pulmonary disease) with emphysema: (3) Osteoporosis: (4) Mild cognitive impairment: (5) Chronic pain: (6) Pancreatic cyst: (7) CVID (common variable immunodeficiency): 1. Acute psychosis of unknown origin. Patient has had a medical work-up in the ED. Their note states: - Labs notable for minimal leukocytosis, normocytic anemia with unclear baseline. Metabolic panel without acute derangement to explain patient's symptoms. Urinalysis challenging to interpret in the context of squamous epithelial contamination, given level of agitation and history physical aggression towards staff we are unable to obtain repeat sampling. Given nitrate negative most likely not true infection however given mental status change will plan to discuss with admitting service - Imaging notable for no acute intracranial process to explain behavior change - Upon serial reexamination after treatment the patient was improved with medications - Based on patient history, evaluation, labs, and imaging as interpreted the most likely cause of the patient's condition is psychosis of unclear etiology 2. Consider steroid induced psychosis, since she was taking 60 mg of prednisone a day at some point and 10 mg twice daily at other points. It also may be due to marijuana use and an older person. She may be improved today, which lends credence to the steroid-induced psychosis hypothesis, since she is off of the steroids for a little bit now. 3. continue current medication. 4. Continue every 15 minute checks for safety. 5. Encourage individual, group and milieu therapies. 6. Create a stable and safe discharge plan. We will meet with to explore whether home is reasonable. 7. 21-day hold was granted. Involuntary Hold Information 96 Hour Hold: 96 Hour Involuntary Admission: No Attestations NPU Medical Necessity Statement*: Psychiatric hospitalization is medically necessary to continue assessment for cause of psychosis, prevent access to lethal means, to initiate medication, and to coordinate a safe discharge. Likely length of stay is 1-4 days. 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
[2020-12-27] MEDS: ropinirole 1 mg Tablet 0.5 MG PO (21:35)
[2020-12-27] MEDS: trazodone 150 mg Tablet 300 MG PO (21:35)
[2020-12-27] MEDS: tizanidine 4 mg Tablet 8 MG PO (21:35)
--- NOTE | 2020-12-27 21:35 | PC.NURSE ---
pt requested med for muscle spasm, zanaflex 8mg po given.
[2020-12-27 22:00] VITALS: BP 104/68; PULSE 104; RESP 15; TEMP 37.2; O2SAT 94
--- NOTE | 2020-12-27 23:00 | PC.NURSE ---
pt resting quietly with both eyes closed
[2020-12-28 06:00] VITALS: BP 110/72; PULSE 104; RESP 20; TEMP 37.5; O2SAT 96
[2020-12-28] MEDS: guaiFENesin 600 mg Tablet 1200 MG PO (08:44)
[2020-12-28] MEDS: ARIPiprazole 2 mg Tablet PO (08:44)
--- NOTE | 2020-12-28 12:52 | PC.NURSE ---
PATIENT C/O HER BOTTOM HURTING. ASSESSES BOTTOM WITH ENVIRONMENTAL OFFICER ASSIST. SLIGHT REDNESS NOTED. STAGE 1 ULCER, DIME SIZE NOTED TO INNER LEFT BUTTOCK. PHYSICIAN AWARE. SEE ORDERS
--- NOTE | 2020-12-28 13:11 | NPU.GN ---
[facility] Topic: Anxiety Bingo General Mood of Group: Zhane was active in group today. Zhane participated and was talkative. Zhane is getting ready for discharge.
--- NOTE | 2020-12-28 13:12 | NPU.GN ---
[facility] Topic:Anxiety Bingo General Mood of Group: Zhane participated in group today. Zhane was talkative and seemed in good spirits, and is ready for discharge.
[2020-12-28 13:42] VITALS: BP 116/82; PULSE 104; RESP 16; TEMP 36.9; O2SAT 94
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
[2020-12-28 15:25] VITALS: BP 116/82; PULSE 104; RESP 16; TEMP 36.9; O2SAT 94
== END 2020-12-28 15:45 | disposition home or self-care (01) | DRG 885 ==
LOC: ER 14:13 → NP 22:26
PROVIDERS: Admitting Provider Psychiatry & Neurology Child & Adolescent Psychiatry; Emergency Provider Emergency Medicine; Visit Provider Psychiatry & Neurology Psychiatry
DX: F23 Brief psychotic disorder (principal); K86.2 Cyst of pancreas; D83.9 Common variable immunodeficiency, unspecified; J43.9 Emphysema, unspecified; M81.0 Age-related osteoporosis without current pathological fracture; G31.84 Mild cognitive impairment of uncertain or unknown etiology; G89.29 Other chronic pain; Z20.822 Contact with and (suspected) exposure to COVID-19; F12.90 Cannabis use, unspecified, uncomplicated
CPT/HCPCS: 36415; 70450; 80053; 80306; 80307; 81001; 84145; 84484; 85025; 87086; 87426; 93005; 96372; 96374; 97150; 97161; 97165; 97530; 99285; J1630; J2060; J7512; Q0162